=== PATIENT | male | born 1965 | race Caucasian/White ===

== ENCOUNTER 2025-06-26 21:12 | Emergency (ER) | payer OTHER ==
[~2025-06-26] VITALS: Ht 172.7 cm; Wt 90.7 kg
[2025-06-26 21:15] VITALS: BP 113/75
[2025-06-26 22:03] LABS: PLATELET COUNT (AUTO) 262 K/uL (152-348); RED BLOOD CELL COUNT(AUTO) 4.13 MIL/uL (4.06-5.63); RED CELL DISTRIBUTION WIDTH 13.0 % (12.1-16.2); WHITE BLOOD COUNT (AUTO) 5.3 K/uL (3.6-10.2)
[2025-06-26 22:03] LABS: *BILIRUBIN,URIN NEGATIVE (NEGATIVE); *BLOOD, URINE NEGATIVE (NEGATIVE); *CLARITY,URINE CLEAR (CLEAR); *COLOR,URINE YELLOW (YELLOW); *KETONES,URINE NEGATIVE (NEGATIVE); *PROTEIN,URINE NEGATIVE (NEGATIVE); *UROBILINOGEN,URINE 0.2 E.U./dl (NORMAL); LEUKOCYTE ESTERASE ,URINE NEGATIVE (NEGATIVE); NITRITE, URINE NEGATIVE (NEGATIVE); UGLUCOSE NEGATIVE (NEGATIVE)
[2025-06-26 22:09] LABS: CREATININE 0.9 mg/dL (0.6-1.3); SODIUM SERUM 139.0 mmol/L (136-145); UREA NITROGEN, BLOOD 13.0 mg/dL (7-18)
[2025-06-26 22:15] LABS: ASPARTATE AMINOTRANSFERASE 23.0 U/L (15-37); TOTAL PROTEIN, SERUM 6.5 g/dL (6.4-8.2)
[2025-06-26] MEDS ORDERED: MORPHINE SULFATE 4 MG/1 ML DISP.SYRIN ONE (23:48)
[2025-06-26] MEDS: MORPHINE SULFATE 4 MG/1 ML DISP.SYRIN IM ONE (23:51)
[2025-06-27 00:16] VITALS: BP 115/71; O2SAT 96
== END 2025-06-27 00:01 | disposition home or self-care (01) ==
LOC: ER 21:15
DX: M54.50 Low back pain, unspecified (principal); M48.00 Spinal stenosis, site unspecified; M45.9 Ankylosing spondylitis of unspecified sites in spine; I25.10 Atherosclerotic heart disease of native coronary artery without angina pectoris
CPT/HCPCS: 36415; 72131; 85025; A4606; A4663; J2270